=== PATIENT | female | born 1950 | race Hispanic/Latino ===

== ENCOUNTER → 2023-04-18 | Outpatient (CLI) | payer OTHER, MEDICARE ==
[~2023-04-18] MED LIST: DiphenhydrAMINE HCL 50 MG/ML VIAL ONE; IOHEXOL 350 MG/ML 100ML INFUS..BTL IV ONE; METOPROLOL TARTRATE 1 MG/ML 5ML VIAL IV ONE; SOLU-MEDROL 125MG VIAL ONE
== END | disposition home or self-care (01) ==
LOC: RAH 10:50
PROVIDERS: ATTEND Student in an Organized Health Care Education/Training Program
DX: R07.9 Chest pain, unspecified (principal)
CPT/HCPCS: 75574; J1200; J3490 ×2; J2930 ×2; Q9967 ×2